=== PATIENT | female | born 1985 | race Caucasian/White ===

== ENCOUNTER 2021-10-26 22:31 | Emergency (ER) | payer MEDICAID ==
[~2021-10-26] VITALS: Ht 154.9 cm; Wt 73.9 kg
[2021-10-26 22:51] VITALS: BP 133/97
--- NOTE | 2021-10-26 23:03 | NUR ---
36 Y/O FEMALE BIBS FROM HOME, C/O PAIN TO LEFT NECK/SHOULDER RADIATING TO LEFT ARM X3 DAYS. 9/10 CONSTANT PAIN. PT HAS HX OF SAME X1YR AGO FOR "STRESS BUMP." PT TAKING TYLENOL X4 HRS AGO 500MG. NO PMH ALL: PCN NO MEDS
[2021-10-27] MEDS ORDERED: ACETAMINOPHEN EXTRA STRENGTH 500 MG TAB PO ONE (00:10)
--- NOTE | 2021-10-27 00:16 | NUR ---
PT TAKEN TO RADIOLOGY
[2021-10-27] MEDS ORDERED: NAPR-1704 PO (00:47)
[2021-10-27 01:57] VITALS: BP 130/94
--- NOTE | 2021-10-27 01:58 | NUR ---
Patient discharged with v/s stable. Written and verbal after care instructions given and explained. Patient alert, oriented and verbalized understanding of instructions. Ambulatory with steady gait. All questions addressed prior to discharge. ID band removed. Patient advised to follow up with PMD. Rx of naprosyn given. Patient educated on indication of medication including possible reaction and side effects. Opportunity to ask questions provided and answered. a/ox4, vss, unlabored breathing, ambulatory, calm demeanor.
== END 2021-10-27 01:57 | disposition home or self-care (01) ==
LOC: MED 22:31
DX: M25.512 Pain in left shoulder (principal)
CPT/HCPCS: 73030; 99283